=== PATIENT | male | born 1995 | race Caucasian/White ===

== ENCOUNTER 2018-08-29 18:43 | Emergency (ER) | payer OTHER ==
[2018-08-29] MEDS ORDERED: LET GEL TOPICAL 1 EA SYR TP ONE (19:38)
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
[2018-08-29 20:35] VITALS: BP 131/76
== END 2018-08-29 20:33 | disposition home or self-care (01) ==
PROC: 2W3DX1Z Immobilization of Left Lower Arm using Splint (ICD-10-PCS; principal; 2018-08-29)
DX: S52.122A Displaced fracture of head of left radius, initial encounter for closed fracture (principal); V18.0XXA Pedal cycle driver injured in noncollision transport accident in nontraffic accident, initial encounter; Y93.55 Activity, bike riding

== ENCOUNTER → 2018-09-11 | Outpatient (CLI) | payer OTHER | LOC: BMCIMAGING 09:02 | PROVIDERS: ATTEND Physician Assistant | DX: S52.122D Displaced fracture of head of left radius, subsequent encounter for closed fracture with routine healing (principal) ==

== ENCOUNTER → 2018-10-09 | Outpatient (CLI) | payer OTHER | LOC: BMCIMAGING 08:25 | PROVIDERS: ATTEND Physician Assistant | DX: S52.122D Displaced fracture of head of left radius, subsequent encounter for closed fracture with routine healing (principal); S52.132D Displaced fracture of neck of left radius, subsequent encounter for closed fracture with routine healing ==